=== PATIENT | female | born 1940 | race Caucasian/White ===

== ENCOUNTER 2022-10-19 08:29 | Emergency (ER) | payer OTHER ==
[2022-10-19 09:03] LABS: BASOPHILS % (AUTO) 0.6 %; EOSINOPHILS % (AUTO) 0.6 %; HCT - HEMATOCRIT 44.1 % (37.0-47.0); HGB - HEMOGLOBIN 14.7 g/dL (12.0-16.0); LYMPHOCYTES # (AUTO) 0.8 10^3/uL (1.5-3.5); LYMPHOCYTES % (AUTO) 15.1 %; MEAN CORPUSCULAR HEMOGLOBIN 30.5 pg (27.0-31.0); MEAN CORPUSCULAR HGB CONC 33.3 g/dL (32.0-36.0); MEAN CORPUSCULAR VOLUME 91.5 fL (81.0-99.0); MEAN PLATELET VOLUME 9.5 fL (7.9-10.8); MONOCYTES # (AUTO) 0.4 10^3/uL (0.0-1.0); MONOCYTES % (AUTO) 8.1 %; NEUTROPHILS # (AUTO) 3.9 10^3/uL (1.5-6.6); PLT - PLATELET COUNT 304 10^3/uL (130-450); RED BLOOD COUNT 4.82 10^6/uL (4.20-5.40); RED CELL DISTRIBUTION WIDTH 13.2 % (12.0-15.0); WHITE BLOOD COUNT 5.2 x10^3/uL (4.8-10.8)
[2022-10-19 09:16] LABS: ALBUMIN 4.2 g/dL (3.2-5.5); ALBUMIN/GLOBULIN RATIO 1.9 (1.0-2.2); BILIRUBIN,TOTAL 0.7 mg/dL (0.2-1.0); CALCIUM 8.9 mg/dL (8.5-10.3); CREATININE 0.7 mg/dL (0.4-1.0); POTASSIUM 3.8 mmol/L (3.5-5.0); TOTAL PROTEIN 6.4 g/dL (6.7-8.2)
[2022-10-19 09:20] LABS: TROPONIN I HIGH SENSITIVITY 10.4 ng/L (2.3-14.8)
--- NOTE | 2022-10-19 09:39 | XRAY Report ---
PROCEDURE: Chest 1 View X-Ray INDICATIONS: CP TECHNIQUE: One view of the chest was acquired. COMPARISON: None. FINDINGS: Surgical changes and devices: None. Lungs and pleura: No pleural effusions or pneumothorax. Lungs are clear. Mediastinum: Mediastinal contours appear normal. Heart size is normal. Bones and chest wall: No suspicious bony lesions. Degenerative changes of the glenohumeral and acrom ioclavicular joints. Overlying soft tissues appear unremarkable. IMPRESSION: No acute cardiopulmonary process. Reviewed by: Juno Wilson MD on 10/19/2022 9:37 AM PDT Approved by: Juno Wilson MD on 10/19/2022 9:37 AM PDT Station ID: [id number]
--- NOTE | 2022-10-19 10:35 | ED Physician Documentation ---
PD HPI CHEST PAIN - Stated complaint Stated Complaint: CHEST PX,NAUSEA - Chief complaint Chief Complaint: Cardiac - History obtained from History obtained from: Patient - Additional information Additional information: Patient is an 82-year-old female presenting for evaluation of chest pain that occurred at 5:00 this morning as she was laying in bed. Patient is unsure how to describe the pain but denies that it was sharp. She states it was in the left side of her chest and lasted 15 minutes and did not recur. She had associated nausea. Nothing made it better or worse. She denies prior history of similar pains. She does report feeling anxious at times. No shortness of air. She is visiting [facility] from [place]. She reports forgetting to take her metoprolol last night and forgot to bring it with her. Denies a history of known coronary artery disease. Takes medications for blood pressure and hyperlipidemia. No recent travel or immobilization.Patient reports being fairly active and walks usually about a mile a day with her dog. Denies having any episodes of chest pain or having difficulty in completing her walks recently. Review of Systems Constitutional: denies: Fever Cardiac: reports: Chest pain / pressure Respiratory: denies: Dyspnea GI: denies: Abdominal Pain Musculoskeletal: denies: Extremity swelling PD PAST MEDICAL HISTORY - Present Medications Home Medications: Ambulatory Orders Medication Instructions Recorded Confirmed Levothyroxine [Synthroid] 88 mcg PO DAILY 10/19/22 10/19/22 Metoprolol Succinate [Toprol Xl] 50 mg PO BID 10/19/22 10/19/22 Metoprolol Succinate [Toprol Xl] 50 mg PO DAILY #8 tablet 10/19/22 Simvastatin [Zocor] 20 mg PO HS 10/19/22 10/19/22 traZODone [Desyrel] 75 mg PO HS 10/19/22 10/19/22 - Allergies Allergies/Adverse Reactions: Allergies Allergy/AdvReac Type Severity Reaction Status Date / Time No Known Drug Allergies Allergy Verified 10/19/22 08:41 PD ED PE NORMAL - General General: Alert and oriented X 3, No acute distress, Well developed/nourished - HEENT HEENT: Atraumatic - Neck Neck: Supple, no meningeal sign - Cardiac Cardiac: RRR, No murmur, Strong equal pulses - Respiratory Respiratory: No respiratory distress, Clear bilaterally - Abdomen Abdomen: Soft, Non tender - Derm Derm: Warm and dry - Extremities Extremities: No edema, No calf tenderness / cord - Neuro Neuro: Normal speech Results - Vitals Vitals: Vital Signs - 24 hr 10/19/22 10/19/22 10/19/22 08:38 09:10 09:30 Temperature 36.3 C L Heart Rate 57 L 47 L 55 L Respiratory 20 16 18 Rate Blood Pressure 186/71 H 138/65 H 146/70 H O2 Saturation 100 93 98 10/19/22 10/19/22 10/19/22 10:00 10:30 11:26 Temperature Heart Rate 53 L 51 L 52 L Respiratory 16 18 18 Rate Blood Pressure 157/65 H 153/66 H 161/75 H O2 Saturation 97 98 100 Oxygen O2 Source Room air - EKG (time done) 0837 EKG releavant findings:: EKG personally interpreted by author of this note. Relevant findings are: Rate 53, sinus bradycardia, no STEMI, no ST depressions, no prior for comparison Rate: Rate (enter#) (53) Rhythm: Sinus bradycardia Intervals: No: Prolonged QT Ischemia: No: ST elevation c/w ischemia Compare to prior EKG: Old EKG unavailable - Labs Labs: Laboratory Tests 10/19/22 10/19/22 10/19/22 08:42 08:42 10:53 WBC 5.2 RBC 4.82 Hgb 14.7 Hct 44.1 MCV 91.5 MCH 30.5 MCHC 33.3 RDW 13.2 Plt Count 304 MPV 9.5 Neut # (Auto) 3.9 Lymph # (Auto) 0.8 L Bel[place] # (Auto) 0.4 Eos # (Auto) 0.0 Baso # (Auto) 0.0 Absolute Nucleated RBC 0.00 Nucleated RBC % 0.0 Sodium 130 L Potassium 3.8 Chloride 95 L Carbon Dioxide 26 Anion Gap 9.0 BUN 12 Creatinine 0.7 Estimated GFR (MDRD) 80 L Glucose 114 H Calcium 8.9 Total Bilirubin 0.7 AST 28 ALT 24 Alkaline Phosphatase 94 Troponin I High Sens 10.4 9.9 Total Protein 6.4 L Albumin 4.2 Globulin 2.2 Albumin/Globulin Ratio 1.9 PD Medical Decision Making - ED course Complexity details: reviewed results, re-evaluated patient, d/w patient ED course: Patient is an 82-year-old female with a history of hypertension, hyperlipidemia presenting for evaluation of left-sided chest pain that lasted 15 minutes while at rest and has since not reoccurred. Patient's EKG is reviewed and nonischemic. Labs including CBC, chemistries and troponin were obtained and reviewed. Sodium is 130. Patient has had history of mild hyponatremia in the past on review of her records from [facility]. High-sensitivity troponin is negative x2 with second troponin obtained at 6 hours from onset of pain. Thus I feel ACS is very unlikely. She has remained pain-free here. No symptoms to suggest pulmonary embolism or aortic dissection. Patient has forgotten her metoprolol at home and then will be visiting the [place] for several days so a small prescription was provided to her. Patient is counseled on need to follow- up with her therapy site coordinator at [facility] as well as her PCP. She is also advised on concerning symptoms to return for. Departure - Departure Disposition: 01 Home, Self Care Clinical Impression: Chest pain, Hyponatremia Condition: Stable Instructions: ED Chest Pain Atypical Unkn Cause Follow-Up: BUCK LLAMAS MD [Physician No Access] - Prescriptions: Metoprolol Succinate [Toprol Xl] 50 mg PO DAILY #8 tablet Comments: You were evaluated for chest pain this morning. Your cardiac markers have not shown signs of a heart attack. At this time the exact cause of your chest pain remains unclear and I do recommend close follow-up with your primary care provider and therapy site coordinator as you may need further testing such as an ultrasound of your heart or a stress test. If at anytime you develop recurrence or worsening symptoms please return to the emergency department. I have sent a refill of your metoprolol to the on license of [facility] pharmacy. Please make sure to take this as directed. Forms: PCP List Discharge Date/Time: 10/19/22 11:44
[2022-10-19 11:30] VITALS: BP 161/75; O2SAT 100
== END 2022-10-19 11:44 | disposition home or self-care (01) ==
LOC: ED 08:29
DX: R07.9 Chest pain, unspecified (principal); E87.1 Hypo-osmolality and hyponatremia; I10 Essential (primary) hypertension; T44.7X6A Underdosing of beta-adrenoreceptor antagonists, initial encounter
CPT/HCPCS: 36415; 80053; 84484; 85025; 93005; 99284